=== PATIENT | male | born 1975 | race Caucasian/White ===

== ENCOUNTER 2017-11-17 07:47 | Emergency (ER) | payer BC, SELFPAY ==
[2017-11-17 07:52] VITALS: BP 152/99; PULSE 75; RESP 20; TEMP 36.6; O2SAT 98
--- NOTE | 2017-11-17 07:59 | DI.RPTCT_ITS ---
SYMPTOMS/DIAGNOSIS: RT FLANK PAIN, ? KIDNEY STONE RENAL COLIC CT: Routine examination was performed. There are no priors for comparison. The visualized lung bases are clear. There is a 2 mm stone at the right ureteral vesicular junction causing minimal hydronephrosis. No other renal calculi are identified. There is a 1.5 cm round area of decreased attenuation in the superior pole of the left kidney. This is nonspecific. This may represent a small cyst. There is a 1.5 cm round area of decreased attenuation in the dome portion of the right lobe of the liver. This is incompletely characterized on this noncontrast examination. The remaining unenhanced visualized portions of the spleen, pancreas, gallbladder and adrenal glands are unremarkable. The urinary bladder is intact. The reproductive organs are grossly unremarkable. The aorta is of normal caliber. No aneurysmal dilatation is seen. No significant abdominal or pelvic adenopathy, ascites or pneumoperitoneum is present. The bowel shows no evidence of obstruction or inflammation. There is a normal retrocecal appendix present. The bones are intact. IMPRESSION: 1. 2 mm right UVJ calculus causing mild hydronephrosis. 2. Round hypodense lesions seen in the dome of the right lobe of the liver and the superior pole of the left kidney. These are nonspecific and may represent cysts. Nonemergent follow up is suggested for further characterization. These findings were discussed with Dr. Samuels of the emergency department on the date of the examination.
--- NOTE | 2017-11-17 08:00 | ED.GENADUL ---
Disposition Clinical Impression: Nephrolithiasis Disposition: HOME Condition: Improving Instructions: Kidney Stones (ED) Additional Instructions: Drink plenty of fluids. Alternate Tylenol and Motrin as needed for pain. Take oxycodone for pain not relieved with Tylenol or Motrin. Follow-up with urology in the next week for reevaluation. Return immediately to the emergency department any worsening or new concerning symptoms such as fever, increased pain, persistent vomiting or any other concerns. Prescriptions: OxyCODONE [Roxicodone] 5 mg PO Q6H PRN #12 tab PRN Reason: Pain Tamsulosin [Flomax] 0.4 mg PO DAILY@0830 5 Days capcr Referrals: Vincenzo Marroquin MD [ [facility] STAFF PHYSICIAN] - Medical Decision Making - Lab Data Laboratory Tests 11/17/17 11/17/17 11/17/17 07:45 08:00 08:00 WBC 6.90 RBC 4.97 Hgb 14.8 Hct 42.9 MCV 86.3 MCH 29.8 MCHC 34.5 RDW 12.5 Plt Count 222 MPV 9.1 Immature Gran % 1.0 Neutrophils % 57.1 Lymphocytes % 28.4 Monocytes % 9.9 Eosinophils % 3.0 Basophils % 0.6 Absolute Neutrophils 3.94 Absolute Lymphocytes 1.96 Absolute Monocytes 0.68 Absolute Eosinophils 0.21 Absolute Basophils 0.04 Sodium 139 Potassium 3.9 Chloride 102 Carbon Dioxide 26.0 Anion Gap 11.0 BUN 13 Creatinine 1.13 Estimated GFR/1.73 m2 >= 60.00 Glucose 214 H Calcium 8.8 Urine Color Yellow Urine Clarity Cloudy Urine pH 5.5 Ur Specific [place] >= 1.030 H Urine Protein 30 H Urine Ketones Trace H Urine Blood Moderate H Urine Nitrite Negative Urine Bilirubin Negative Urine Urobilinogen 0.2 Ur Leukocyte Esterase Negative Urine RBC 5-10 H Urine WBC 0-2 Ur Epithelial Cells Negative Urine Crystals Many amorphous Urine Bacteria Few Urine Casts Negative Urine Mucus Negative Urine Other Negative Ur Culture Indicated? No Urine Glucose Negative - Radiology Data Radiology results: report reviewed, image reviewed CT renal colic: 1. 2mm UVJ causing mild hydronephrosis. 2. Round hypodense lesions dome of right lobe of liver and superior pole of left kidney which could be consistent with a cyst per - Medical Decision Making 42-year-old male with no past medical history who presents with right flank pain with radiation to right lower quadrant, nausea and urinary urgency for the past hour. Appears nontoxic and in no acute distress. Differential diagnosis includes nephrolithiasis, cholelithiasis, appendicitis, urethritis, UTI. We will place an IV, give bolus IV fluids, Toradol, labs, urinalysis and CT renal colic. Labs and imaging reviewed. CBC unremarkable. BMP notes a glucose of 214 but otherwise unremarkable. UA notes 5-10 RBCs and 0-2 WBCs but negative leukocyte esterase. CT notes a 2 mm right UVJ calculus. Pt states he feels much better and feels good to go home. Patient was informed of results. Patient was instructed to follow-up with his primary care doctor for reevaluation. He was instructed to discuss with his PCP regarding his elevated glucose and possible liver and kidney cyst noted on CT. Patient was placed on care management list to arrange for a follow-up appointment with Dr. Marroquin. Patient was instructed to return here if worse. Patient given strainer for home. Patient complained of some return of pain and was given oxycodone prior to discharge. He was able to ambulate out of the ED in no acute distress. History of Present Illness - General Chief complaint: FlankPain Stated complaint: KIDNEY PAIN Time Seen by Provider: 11/17/17 07:51 Source: patient Mode of arrival: ambulatory Limitations: no limitations - History of Present Illness Initial comments: Patient is a 42-year-old male who presents to the ER with complaint of right flank pain, nausea and urinary urgency for the past hour. Patient describes his pain as constant, sharp, with radiation to the right lower quadrant, and currently 6/10. Patient has not taken anything for pain. Patient denies known fever, dysuria, hematuria, frequency, penile discharge, vomiting, or history of kidney stones. Denies injury. - Related Data Escitalopram [Lexapro] 1 tab PO DAILY #90 tab 04/06/17 OxyCODONE [Roxicodone] 5 mg PO Q6H PRN #12 tab 11/17/17 Tamsulosin [Flomax] 0.4 mg PO DAILY@0830 5 Days capcr 11/17/17 Allergies Allergy/AdvReac Type Severity Reaction Status Date / Time No Known Allergies Allergy Unverified 11/17/17 07:55 Review of Systems Constitutional: denies: chills, fever Eyes: denies: eye pain ENT: denies: ear pain, dental pain Respiratory: denies: cough, shortness of breath Cardiovascular: denies: chest pain, dyspnea on exertion Gastrointestinal: abdominal pain, nausea. denies: vomiting, diarrhea Genitourinary: urgency. denies: dysuria, frequency, hematuria, discharge Musculoskeletal: back pain Skin: denies: rash, lesions Neurological: denies: headache, weakness, numbness Past Medical History - Past Medical History Medical history: no medical history Surgical history: no surgical history - Social History Smoking status: never smoker Alcohol use: occasionally Drug use: none General Exam - General Limitations: no limitations General appearance: alert, in no apparent distress - Eye Eye exam: Present: EOMI - Respiratory Respiratory exam: Present: normal lung sounds bilaterally. Absent: respiratory distress, wheezes, rales, rhonchi, stridor - Cardiovascular Cardiovascular Exam: Present: regular rate, normal rhythm. Absent: bradycardia, tachycardia - GI/Abdominal GI/Abdominal exam: Present: soft, tenderness (Mild to moderate right lower quadrant), normal bowel sounds. Absent: distended, guarding, rebound, rigid - exam: Present: normal inspection External exam: Absent: erythema, swelling, lesions - Extremities Exam Extremities exam: Present: full ROM - Back Exam Back exam: Present: normal inspection, CVA tenderness (R). Absent: CVA tenderness (L) - Neurological Exam Neurological exam: Present: alert, oriented X3 - Psychiatric Psychiatric exam: Present: normal affect - Skin Skin exam: Present: warm, dry, intact Course Vital Signs - 24 hr 11/17/17 07:52 Temperature 97.9 F Pulse 75 Respiratory 20 Rate Blood Pressure 152/99 Pulse Oximetry 98
[2017-11-17] MEDS: Ketorolac 30 MG/ML VIAL IVP (08:09)
[2017-11-17] MEDS: Normal Saline 1,000 ML 1000 ML IV (08:09)
[2017-11-17 08:15] LABS: Bilirubin Negative (Negative); Blood Moderate (Negative); Clarity Cloudy; Glucose Negative (Negative); Ketones Trace mg/dL (Negative); Leukocyte Esterase Negative (Negative); Nitrite Negative (Negative); Specific Gravity >= 1.030 (1.005-1.025); Urobilinogen 0.2 EU/dL (Up TO 0.2); pH 5.5 (5-8)
[2017-11-17 08:23] LABS: Abs Immature Grans 0.07 k/cumm (0.0-0.09); Absolute Basophil Count 0.04 k/cumm (0.0-0.2); Absolute Eosinophil Count 0.21 k/cumm (0.0-0.7); Absolute Lymphocyte Count 1.96 k/cumm (1.2-3.4); Absolute Monocyte Count 0.68 k/cumm (0.11-0.7); Absolute Neutrophil Count 3.94 k/cumm (1.2-6.7); Basophils % 0.6; HCT 42.9 % (40.0-50.0); HGB 14.8 g/dL (13.5-17.5); Lymphocytes % 28.4; Mean Corp. HGB Concentration 34.5 g/dL (32.0-36.0); Mean Corpuscular Hemoglobin 29.8 pg (27.0-33.0); Mean Corpuscular Volume 86.3 fL (80-95); Mean Platelet Volume 9.1 fL (8.0-11.0); Monocytes % 9.9; Neutrophils % 57.1; Platelet Count 222 x1000/uL (130-400); RBC 4.97 m/cumm (4.50-6.00); RBC Distribution Width 12.5 % (11.8-14.1)
[2017-11-17 08:31] LABS: BUN 13 mg/dL (7-18); CREATININE 1.13 mg/dL (0.70-1.30); Calcium 8.8 mg/dL (8.5-10.1); Chloride 102 mmol/L (98-107); Glucose 214 mg/dL (70-100); Potassium 3.9 mmol/L (3.5-5.1); Sodium 139 mmol/L (136-145)
[2017-11-17 08:33] LABS: WBC 0-2 HPF (0-5)
[2017-11-17 08:34] LABS: Bacteria Few HPF (Negative); C & S Indicated? No; Casts Negative LPF (Negative); Crystals Many Amorphous HPF (Negative); Epithelial Cells Negative HPF (Negative); Mucus Negative (Negative); Other Cells Negative (Negative)
[2017-11-17] MEDS: oxyCODONE 5 MG TAB PO (09:36)
[2017-11-17 09:42] VITALS: BP 130/77; PULSE 70; RESP 16; TEMP 36.7; O2SAT 98
--- NOTE | 2017-11-18 08:43 | PDOC.ERCMPRO ---
Care Management Progress Note 11/18-Dr. Samuels requested assistance with a urology appt in one week for kidney stone. Referral faxed to urology this am.
== END 2017-11-17 09:44 | disposition home or self-care (01) ==
LOC: ER 12-27 14:45
PROVIDERS: Emergency Provider Physician Assistant; PCP Family Medicine
DX: N13.2 Hydronephrosis with renal and ureteral calculous obstruction (principal)
CPT/HCPCS: 36415; 80048; 96361; 96374; 99284; 74176; 81003; 81015; 85025; J1885

== ENCOUNTER → 2017-11-23 10:13 | Outpatient (CLI) | payer BC, SELFPAY ==
[2017-11-23 11:07] LABS: Hemoglobin A1C 7.1 % (4.5-6.2)
[2017-11-23 11:54] LABS: ALT 66 U/L (12-78); AST 43 U/L (15-37); Albumin 4.2 g/dL (3.4-5.0); Alkaline Phosphatase 76 U/L (46-116); Anion Gap 10.8 mmol/L (3-11); BUN 14 mg/dL (7-18); Bilirubin, Total 1.1 mg/dL (0.2-1.0); CO2 27.2 mmol/L (21.0-32.0); CREATININE 0.95 mg/dL (0.70-1.30); Chloride 103 mmol/L (98-107); Cholesterol 251 mg/dL (50-200); Glucose 155 mg/dL (70-100); HDL Cholesterol 35 mg/dL (40-60); LDL CHOLESTEROL 151 mg/dL (<100); Potassium 4.3 mmol/L (3.5-5.1); Sodium 141 mmol/L (136-145); Total Protein 7.4 g/dL (6.4-8.2); Triglyceride 392 mg/dL (30-150)
[2017-11-24 12:58] LABS: HIV-1/2 Ag & Ab Screen Negative (NEGAT)
== END ==
PROVIDERS: PCP Family Medicine; Visit Provider Family Medicine
DX: R73.9 Hyperglycemia, unspecified (principal); Z56.9 Unspecified problems related to employment
CPT/HCPCS: 36415; 80053; 80061; 83721; 87389; 83036

== ENCOUNTER → 2017-11-24 13:00 | Outpatient (REF) | payer BC, SELFPAY ==
[2017-12-18 14:19] LABS: Source: Passed Stone
== END ==
LOC: LBN 13:00
PROVIDERS: PCP Family Medicine; Visit Provider Nurse Practitioner Gerontology
DX: N20.0 Calculus of kidney (principal)
CPT/HCPCS: 82360

== ENCOUNTER 2017-12-29 15:05 | Outpatient (CLI) | payer BC, SELFPAY ==
--- NOTE | 2017-12-28 13:40 | DI.US_ITS ---
SYMPTOMS/DIAGNOSIS: F/U KIDNEY STONE, N20.0, AND HYDRONEPHROSIS RENAL ULTRASOUND: Comparison is made with renal colic CT dated November,. The kidneys are normal in size and echogenicity and show normal parenchymal thickness. The right kidney measures 12.5 cm in length. The left kidney measures 11.1 cm in length. There is no evidence of hydronephrosis. No stones are identified. There is a small simple cyst at the upper pole of the left kidney. The bladder prevoid volume measured 67 cc. There is a 53 cc postvoid residual. Both ureteral jets were visualized. IMPRESSION: No evidence of hydronephrosis. Elevated postvoid residual.
== END 2017-12-29 15:25 ==
PROVIDERS: PCP Family Medicine; Visit Provider Nurse Practitioner Gerontology
DX: N20.0 Calculus of kidney (principal); R39.198 Other difficulties with micturition
CPT/HCPCS: 76770

== ENCOUNTER 2018-04-05 02:27 | Outpatient (CLI) | payer BC, SELFPAY ==
[2018-04-05 09:06] LABS: Hemoglobin A1C 7.3 % (4.5-6.2)
[2018-04-05 09:07] LABS: COMMENT (LAB VIEW ONLY) 201.19 mg/dL; Microalb ug/mg Crea 8.8 ug/mg Cr
[2018-04-05 09:16] LABS: ALT 69 U/L (12-78); AST 39 U/L (15-37); Alkaline Phosphatase 67 U/L (46-116); Anion Gap 8.9 mmol/L (3-11); BUN 12 mg/dL (7-18); CO2 28.1 mmol/L (21.0-32.0); CREATININE 0.92 mg/dL (0.70-1.30); Calcium 8.8 mg/dL (8.5-10.1); Chloride 102 mmol/L (98-107); Cholesterol 239 mg/dL (50-200); Glucose 202 mg/dL (70-100); HDL Cholesterol 30 mg/dL (40-60); LDL CHOLESTEROL 150 mg/dL (<100); Potassium 4.3 mmol/L (3.5-5.1); Sodium 139 mmol/L (136-145); Total Protein 7.2 g/dL (6.4-8.2); Triglyceride 324 mg/dL (30-150)
== END 2018-04-05 02:47 ==
PROVIDERS: PCP Family Medicine; Visit Provider Family Medicine
DX: E11.9 Type 2 diabetes mellitus without complications (principal)
CPT/HCPCS: 36415; 80053; 80061; 83721; 82043; 82570; 83036

== ENCOUNTER 2018-06-18 17:03 | Emergency (ER) | payer BC, SELFPAY ==
[2018-06-18 17:07] VITALS: BP 136/87; PULSE 74; RESP 16; TEMP 36.7; O2SAT 98
--- NOTE | 2018-06-18 17:22 | W.ED.GENAD ---
Discharge Plan Disposition Patient Disposition: HOME Condition: Stable Discharge Details Chief Complaint: RespSymp Clinical Impression: URI (upper respiratory infection) Primary Care Provider: Zee White ED Provider: Michael Singh Home Meds and New Rx's Prescriptions: Continued metformin 500 mg tablet 500 mg PO DAILY Qty: 90 RF: 1 FreeStyle Haja 10 Day Sensor kit .ROUTE .MEDSUPPLY Qty: 1 RF: 0 escitalopram oxalate [Lexapro] 20 mg tablet 20 mg PO DAILY Qty: 90 RF: 4 Discharge Instructions Instructions: Upper Respiratory Infection (ED) Additional Instructions: Please continue to use [id number] medications such as Flonase, Tylenol cold and flu severe, and simple saline nasal rinses. You may take ibuprofen as needed for sinus pressure and return immediately to the emergency department for any new or significant worsening of symptoms, fever or chills after 1 week of symptoms, or any further concerns. Otherwise follow-up with your primary care provider as needed for reassessment. Referrals: Zee White MD [Primary Care Provider] - (As needed for reassessment) Discharge Data Discharge Date/Time-TO BE ENTERED AT DEPARTURE: 06/18/18 17:30 Medical Decision Making Patient presenting to the emergency department for chief complaint of upper respiratory tract infectious type symptoms. He states that approximately 4 days ago he began having some sinus pressure nasal congestion which now is caused some postnasal drainage, mild sore throat, and headache along with ear pressure. Patient denies any fever chills, chest pain, difficulty breathing. Review of vital signs shows within normal limits vital signs without tachycardia, hypotension, febrile or hypoxia. Physical exam reveals nasal congestion without significant sinus tenderness, no lymphadenopathy, otherwise normal HEENT exam. Patient symptoms are consistent with viral upper respiratory tract infection. Given local prevalence of influenza influenza testing was offered to patient but given duration of symptoms I do not feel that he would qualify for Tamiflu and has no significant risk factors and stable vital signs. After discussion of this with patient patient denied influenza testing. Viral illness was thoroughly discussed with patient along with return precautions. Patient recommended to take [id number] Flonase, Tylenol cold and flu severe, and perform saline nasal rinses. After discussion of diagnosis and plan of care patient has no further needs, questions, or concerns and states clear understanding to return to the emergency department for any worsening symptoms. HPI General Mode of arrival: ambulatory. Date/Time Provider Initiated Documentation: 06/18/18 17:10. Limitations to Documentation: no limitations. Information obtained by: RN notes reviewed. History of Present Illness 42 year old M presents to the emergency department with the chief complaint of sinus pressure, cold symptoms, described as severe, with intensity rated at 10. and is localized to the face. Patient started experiencing this day(s) (4) and it has been constant. Patient did receive the following treatments prior to arrival, other (Cherie-Osakis cold) Related Data Home Medications Medication Instructions Recorded Confirmed metformin 500 mg tablet 500 mg PO DAILY #90 tab 04/06/18 06/18/18 escitalopram 20 mg tablet 20 mg PO DAILY #90 tab 04/28/18 06/18/18 flash glucose sensor kit #1 each 05/06/18 06/18/18 Previous Rx's Medication Instructions Recorded metformin 500 mg tablet 500 mg PO DAILY #90 tab 04/06/18 escitalopram 20 mg tablet 20 mg PO DAILY #90 tab 04/28/18 flash glucose sensor kit #1 each 05/06/18 Allergies Allergy/AdvReac Type Severity Reaction Status Date / Time No Known Allergies Allergy Unverified 06/18/18 17:12 General Stated Complaint: RespSymp DANNY: 4 Review of Systems Constitutional Denies body ache(s), Denies chills, Denies fever(s), Reports headache(s) and Reports malaise Eyes Denies eye discharge ENT Reports as per HPI, Denies ear discharge, Reports otalgia, Reports headache(s), Reports nasal congestion, Reports nasal discharge, Denies neck pain, Reports sinus pain, Reports sinus pressure, Reports sore throat and Denies throat swelling Cardiovascular Denies chest pain and Denies dyspnea Respiratory Reports cough and Denies dyspnea Musculoskeletal Denies joint swelling and Denies neck pain Integumentary/Breasts Denies rash Neurologic Reports headache(s) Allergic/Immunologic Denies throat swelling PFSH Surgical History Vasectomy Social History household members: none lives independently: Yes highest education level completed: high school graduate 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 Smoking and Tabacco status: Never alcohol intake: current alcohol intake frequency: 0-2 drinks per day Alcohol type: beer Exam Const General: cooperative, comfortable, no acute distress and not ill appearing Orientation: alert and awake [facility] Head: normal to inspection, normocephalic and atraumatic Ears: hearing grossly normal bilaterally and TM's normal bilaterally General nose exam: external nose normal Face and sinus: normal facial exam, sinuses nontender and no erythema Mouth: oral mucosae normal, no drooling, no muffled voice and no trismus Throat: posterior oropharynx normal, tonsils normal and uvula midline Neck Neck: normal visual inspection, full ROM, no lymphadenopathy, no meningeal signs, trachea midline and supple Resp Effort & Inspection: normal respiratory effort and able to speak in complete sentences Auscultation: clear to auscultation bilaterally Cardio Rate: regular rate Rhythm: regular rhythm Heart Sounds: S1 normal, S2 normal, normal S1 and S2, no click, no gallops, no murmurs and no rubs Skin General skin exam: no rashes or lesions noted and dry skin (warm) Neuro General: alert and awake Course Vital Signs Temperature 36.7 C 06/18/18 17:07 Pulse 74 06/18/18 17:07 Respiratory Rate 16 06/18/18 17:07 Blood Pressure 136/87 06/18/18 17:07 Pulse Oximetry 98 06/18/18 17:07 Temperature 36.7 C 06/18/18 17:07 Temperature Source Skin 06/18/18 17:07 Pulse 74 06/18/18 17:07 Respiratory Rate 16 06/18/18 17:07 Respiratory Effort Non-Labored 06/18/18 17:10 Blood Pressure 136/87 06/18/18 17:07 Pulse Oximetry 98 06/18/18 17:07 Pain Level 10 06/18/18 17:07
== END 2018-06-18 17:30 | disposition home or self-care (01) ==
PROVIDERS: Emergency Provider Nurse Practitioner Family; PCP Family Medicine
DX: R09.81 Nasal congestion (principal); J02.8 Acute pharyngitis due to other specified organisms; R51 Headache; J06.9 Acute upper respiratory infection, unspecified; E11.9 Type 2 diabetes mellitus without complications; Z79.84 Long term (current) use of oral hypoglycemic drugs
CPT/HCPCS: 99282

== ENCOUNTER 2018-10-25 02:04 | Outpatient (CLI) | payer BC, SELFPAY ==
[2018-10-25 08:30] LABS: Hemoglobin A1C 6.5 % (4.5-6.2)
[2018-10-25 08:33] LABS: ALT 50 U/L (12-78); AST 35 U/L (15-37); Alkaline Phosphatase 76 U/L (46-116); Anion Gap 10.6 mmol/L (3-11); BUN 16 mg/dL (7-18); Bilirubin, Total 1.2 mg/dL (0.2-1.0); CO2 26.4 mmol/L (21.0-32.0); CREATININE 0.99 mg/dL (0.70-1.30); Calcium 8.8 mg/dL (8.5-10.1); Calculated LDL 114 mg/dL; Chloride 103 mmol/L (98-107); Cholesterol 216 mg/dL (50-200); Glucose 147 mg/dL (70-100); HDL Cholesterol 32 mg/dL (40-60); Potassium 4.4 mmol/L (3.5-5.1); Sodium 140 mmol/L (136-145); Total Protein 7.2 g/dL (6.4-8.2); Triglyceride 350 mg/dL (30-150)
== END 2018-10-25 02:24 ==
PROVIDERS: PCP Family Medicine; Visit Provider Family Medicine
DX: E11.9 Type 2 diabetes mellitus without complications (principal)
CPT/HCPCS: 36415; 80053; 80061; 83721; 83036

== ENCOUNTER 2019-01-29 09:55 | Outpatient (CLI) | payer BC, SELFPAY ==
[2019-01-29 11:43] LABS: ALT 62 U/L (16-63); AST 45 U/L (15-37); Albumin 4.1 g/dL (3.4-5.0); Alkaline Phosphatase 69 U/L (46-116); Anion Gap 10.6 mmol/L (3-11); BUN 13 mg/dL (7-18); Bilirubin, Total 1.2 mg/dL (0.2-1.0); CO2 27.4 mmol/L (21.0-32.0); Calcium 8.8 mg/dL (8.5-10.1); Calculated LDL 118 mg/dL; Chloride 103 mmol/L (98-107); Cholesterol 222 mg/dL (50-200); Glucose 180 mg/dL (70-100); HDL Cholesterol 32 mg/dL (40-60); Potassium 4.2 mmol/L (3.5-5.1); Sodium 141 mmol/L (136-145); Total Protein 7.4 g/dL (6.4-8.2); Triglyceride 362 mg/dL (30-150)
[2019-01-30 06:30] LABS: Hemoglobin A1C 6.9 % (4.5-6.2)
== END 2019-01-29 10:15 ==
PROVIDERS: PCP Family Medicine; Visit Provider Family Medicine
DX: E11.9 Type 2 diabetes mellitus without complications (principal); E78.5 Hyperlipidemia, unspecified
CPT/HCPCS: 36415; 80053; 80061; 83036

== ENCOUNTER 2019-05-16 01:24 | Outpatient (CLI) | payer BC, SELFPAY ==
[2019-05-16 11:54] LABS: Hemoglobin A1C 7.6 % (3.8-5.6)
[2019-05-16 12:23] LABS: Calculated LDL 91 mg/dL (<100); Cholesterol 201 mg/dL (<200); HDL Cholesterol 33 mg/dL (40-60); Triglyceride 389 mg/dL (<150)
== END 2019-05-16 01:44 ==
PROVIDERS: PCP Family Medicine; Visit Provider Family Medicine
DX: E78.00 Pure hypercholesterolemia, unspecified (principal); E11.9 Type 2 diabetes mellitus without complications
CPT/HCPCS: 36415; 80061; 83036

== ENCOUNTER 2019-12-05 07:33 | Outpatient (CLI) | payer BC, SELFPAY ==
[2019-12-06 14:44] LABS: COVID-19 RT-PCR Result NEGATIVE (Negative)
== END 2019-12-05 07:53 ==
PROVIDERS: PCP Family Medicine; Visit Provider Family Medicine
DX: Z11.59 Encounter for screening for other viral diseases (principal)
CPT/HCPCS: U0003

== ENCOUNTER 2020-04-17 03:19 | Outpatient (CLI) | payer BC, SELFPAY ==
[2020-04-17 20:50] LABS: COVID-19 RT-PCR UVMMC Result Negative (Negative)
== END 2020-04-17 03:39 ==
PROVIDERS: PCP Family Medicine; Visit Provider Family Medicine
DX: Z20.828 Contact with and (suspected) exposure to other viral communicable diseases (principal)
CPT/HCPCS: U0003

== ENCOUNTER 2020-07-17 11:05 | Outpatient (CLI) | payer BC, SELFPAY ==
[2020-07-17 13:11] LABS: Hemoglobin A1C 6.9 % (<5.7)
== END 2020-07-17 11:06 | disposition home or self-care (01) ==
LOC: LOS 07-18 11:07
PROVIDERS: PCP Family Medicine; Visit Provider Family Medicine
DX: E11.9 Type 2 diabetes mellitus without complications (principal)
CPT/HCPCS: 36415; 83036

== ENCOUNTER 2020-10-16 08:32 | Outpatient (CLI) | payer BC, SELFPAY ==
[2020-10-16 12:47] LABS: ALT 69 U/L (16-63); AST 41 U/L (15-37); Albumin 4.2 g/dL (3.4-5.0); Alkaline Phosphatase 72 U/L (46-116); Anion Gap 10.4 mmol/L (3-11); BUN 15 mg/dL (7-18); Bilirubin, Total 1.1 mg/dL (0.2-1.0); CO2 26.6 mmol/L (21.0-32.0); CREATININE 0.9 mg/dL (0.70-1.30); Calculated LDL 98 mg/dL (<100); Chloride 103 mmol/L (98-107); Cholesterol 196 mg/dL (<200); Glucose 216 mg/dL (74-106); HDL Cholesterol 33 mg/dL (40-60); Potassium 4.5 mmol/L (3.5-5.1); Sodium 140 mmol/L (136-145); Total Protein 7.5 g/dL (6.4-8.2); Triglyceride 326 mg/dL (<150)
[2020-10-16 13:22] LABS: COMMENT (LAB VIEW ONLY) 200.78 mg/dL
== END 2020-10-16 08:33 | disposition home or self-care (01) ==
PROVIDERS: PCP Family Medicine; Visit Provider Family Medicine
DX: E11.9 Type 2 diabetes mellitus without complications (principal)
CPT/HCPCS: 36415; 80053; 80061; 82043; 82570

== ENCOUNTER 2021-02-14 01:17 | Outpatient (CLI) | payer BC, SELFPAY ==
[2021-02-14 14:05] LABS: Hemoglobin A1C 8.1 % (<5.7)
== END 2021-02-14 01:18 | disposition home or self-care (01) ==
LOC: LOS 01:18
PROVIDERS: PCP Family Medicine; Visit Provider Family Medicine
DX: E11.9 Type 2 diabetes mellitus without complications (principal)
CPT/HCPCS: 36415; 83036

== ENCOUNTER 2021-09-17 10:52 | Outpatient (CLI) | payer BC, SELFPAY | END 2021-09-17 10:53 | disposition home or self-care (01) | PROVIDERS: PCP Family Medicine; Visit Provider Family Medicine ==

== ENCOUNTER 2021-09-17 19:32 | Outpatient (REF) | payer BC, SELFPAY ==
[2021-09-18 13:15] LABS: COVID-19 RT-PCR UVMMC Result Negative (Negative)
== END 2021-09-17 19:33 | disposition home or self-care (01) ==
LOC: LBN 19:32
PROVIDERS: PCP Family Medicine; Visit Provider Family Medicine
DX: Z20.822 Contact with and (suspected) exposure to COVID-19 (principal); R09.89 Other specified symptoms and signs involving the circulatory and respiratory systems
CPT/HCPCS: U0003

== ENCOUNTER 2022-01-01 04:38 | Outpatient (CLI) | payer BC, SELFPAY ==
[2022-01-01 09:44] LABS: Hemoglobin A1C 6.9 % (<5.7)
[2022-01-01 10:22] LABS: ALT 40 U/L (16-63); AST 23 U/L (15-37); Albumin 4.2 g/dL (3.4-5.0); Alkaline Phosphatase 63 U/L (46-116); Anion Gap 9.6 mmol/L (3-11); BUN 15 mg/dL (7-18); Bilirubin, Total 1.2 mg/dL (0.2-1.0); CO2 26.4 mmol/L (21.0-32.0); CREATININE 0.9 mg/dL (0.70-1.30); Calcium 8.9 mg/dL (8.5-10.1); Calculated LDL 109 mg/dL (<100); Chloride 103 mmol/L (98-107); Cholesterol 193 mg/dL (<200); Estimated GFR 106.67 (mL/min/1.73m2); Glucose 149 mg/dL (74-106); HDL Cholesterol 39 mg/dL (40-60); Potassium 4.1 mmol/L (3.5-5.1); Sodium 139 mmol/L (136-145); Total Protein 7.8 g/dL (6.4-8.2); Triglyceride 225 mg/dL (<150)
[2022-01-01 18:23] LABS: Albumin, Ur < 0.6 mg/dL (See Note); Creatinine, Ur 98.3 mg/dL (See Note)
[2022-01-02 10:12] LABS: Hepatitis C Ab w Rflx HCV PCR Negative (Negative)
[2022-01-02 11:27] LABS: Hepatitis B Surface Ag Negative (Negative)
== END 2022-01-01 04:39 | disposition home or self-care (01) ==
LOC: LBO 04:38
PROVIDERS: PCP Nurse Practitioner Family; Visit Provider Family Medicine
DX: E11.9 Type 2 diabetes mellitus without complications (principal); R74.8 Abnormal levels of other serum enzymes; I10 Essential (primary) hypertension
CPT/HCPCS: 80053; 80061; 86803; 87340; 82043; 82570; 83036

== ENCOUNTER 2022-07-05 15:18 | Emergency (ER) | payer BC, SELFPAY ==
[2022-07-05] VITALS (12 sets, daily range): BP systolic 117–131; BP diastolic 71–78; PULSE 60–70; RESP 16; TEMP 36.2; O2SAT 96–98
--- NOTE | 2022-07-05 15:45 | DI.CT_ITS ---
Exam(s) CT ABDOMEN PELVIS W EXAM: CT ABDOMEN PELVIS W CLINICAL HISTORY: right lower abdominal pain. TECHNIQUE: Imaging Protocol: Axial computed tomography images with coronal and sagittal reformatted images were created and reviewed CONTRAST MATERIAL: Intravenous: Omnipaque-350 100cc Oral: None COMPARISON: CT RENAL COLIC WO CONTRAST from 11/17/2017 FINDINGS: VISUALIZED LUNG BASES: No nodules nor pleural effusions evident. ABDOMEN: There is no ascites. LIVER: There is benign cyst in the posterior aspect of the right hepatic lobe which is unchanged from 2018. This measures 1.5 x 1.4 cm. No dilated intrahepatic ducts. GALLBLADDER/BILIARY: No obvious gallbladder pathology. CBD is not dilated. PANCREAS: No evidence of pancreatic mass nor dilatation of the pancreatic duct. SPLEEN: Spleen is not enlarged. No obvious intrasplenic lesions. Splenic and portal veins are paten t. ADRENALS: There are no significant adrenal masses. KIDNEYS:There is a benign cyst in the superior pole of the left kidney measuring 2 x 2 cm. A smaller cyst in the anterior cortex of the left kidney is also noted measuring 1 x 1 cm. No other focal fin dings in the left kidney. There is a partially exophytic cyst in the posterior cortex of the right k idney measures 1.5 x 1.0 cm. No solid renal masses. No calculi nor hydronephrosis.. ABDOMINAL AORTA: Abdominal aorta is not enlarged. LYMPH NODES:There is no retroperitoneal nor paraaortic adenopathy. ABDOMINAL WALL: No evidence of significant anterior abdominal wall nor inguinal hernia. GI: There is no evidence of bowel obstruction, free air, nor abscess. PELVIS: GI: No evidence of appendicitis.No evidence of sigmoid diverticulitis. LYMPH NODES: There is no intrapelvic nor inguinal adenopathy. REPRODUCTIVE: Prostate size upper normal. Seminal vesicles unremarkable. URINARY BLADDER: No calculi nor obvious masses evident OSSEOUS: No fractures and no significant osseous lesions. IMPRESSION: 1. No evidence of acute appendicitis nor acute diverticulitis. No evidence of acute inflammatory pro cess in either iliac fossa. 2. Stable small simple benign cyst in the liver as well as small benign kidney cysts. No renal calcu li. No hydronephrosis. RADIATION DOSE DELIVERED: 1,277.44mGy.cm Total DLP DATA REPOSITORY: All CT scans at this facility are submitted to the National Radiology Data Registry (NRDR) Dose Index Registry (DIR) with the [employer] [place] [employer] (A[employer]). RADIATION OPTIMIZATION: All CT scans at this facility use at least one of these dose optimization te chniques: automated exposure control; mA and/or kV adjustment per patient size (includes targeted exa ms where dose is matched to clinical indication); or iterative reconstruction.
--- NOTE | 2022-07-05 15:52 | ED.GENADUL_ITS ---
Discharge Plan Disposition Patient Disposition: Home Condition: Stable Discharge Details Clinical Impression: RLQ abdominal pain Primary Care Provider: Alejandro Nice ED Provider: David Jimenez Home Meds and New Rx's Prescriptions: Continued Jardiance 10 mg tablet 10 mg PO DAILY Qty: 90 3RF pravastatin 20 mg tablet 20 mg PO DAILY Qty: 90 4RF aspirin 81 mg tablet,delayed release (DR/EC) See Rx Instructions .ROUTE .COMPLEX Qty: 90 3RF Dose Instruction: TAKE ONE TABLET BY MOUTH EVERY DAY Rx Instructions: TAKE ONE TABLET BY MOUTH EVERY DAY metformin 500 mg tablet extended release 24 hr 1,000 mg PO DAILY Qty: 180 3RF Rx Instructions: take 2 tablets once a day escitalopram oxalate [Lexapro] 20 mg tablet 20 mg PO DAILY Qty: 90 4RF Discharge Instructions Instructions: Abdominal Pain (ED) Additional Instructions: your blood work and cat scan did not show concerning findings if pain continues follow up with your primary care provider if you feel more ill, have severe worsening pain or persistent vomiting return to the emergency department Medical Decision Making 46 yo male with hx of hld, dm, who denies prior abdominal surgeries comes in with discomfort in the rlq for 2 days. Denies fevers, chills, n/v, testicle pain or swelling, no dysuria. HE states it feels like a dull ache as if he pulled or strained a muscle. HE arrives stable speaking clearly in no distress. HE has no abdominal distention, is tender with palpation to the rlq, no tenderness elsewhere. Given location of pain concern for appendicitis, will obtain cbc, cmp, lipase and ct abd/pelvis imaging and labs unremarkable, pt stable and has minimal rlq tenderness, appendix normal on CT. Discussed with pt and he is comfortable with d/c and will f/u with his pcp, return precautions given Differential Diagnosis Differential Diagnosis: appendicitis, colitis, pancreatitis Imaging Data Radiologic Study: Attestation: I personally reviewed and interpreted this imaging study as follows: Imaging: CT Scan Radiologist's impression: no acute findings Lab Data Lab results reviewed: Yes I reviewed the patient's lab results. HPI General Mode of arrival: ambulatory . Date/Time Provider Initiated Documentation: 07/05/22 15:28 . Limitations to Documentation: no limitations . Information obtained by: patient . History of Present Illness 46 year old M presents to the emergency department with the chief complaint of right lower abdominal pain, described as moderate, Quality is described as aching, Patient started experiencing this day(s) (2) and it has been constant. No relieving factors improve symptom(s), No exacerbating factors reported . Patient notes no other symptoms.; denies fever/chills and nausea/vomiting. Patient did receive the following treatments prior to arrival, none Related Data Home Medications Medication Instructions Recorded Confirmed pravastatin 20 mg tablet 20 mg PO DAILY #90 tabs 07/30/21 04/01/22 aspirin 81 mg tablet,delayed See Rx Instructions .Route 08/11/21 04/01/22 release .COMPLEX #90 tabs metformin 500 mg tablet,extended 1,000 mg PO DAILY #180 tabs 10/15/21 04/01/22 release 24 hr escitalopram oxalate 20 mg tablet 20 mg PO DAILY #90 tabs 11/12/21 04/01/22 (Lexapro) empagliflozin 10 mg tablet 10 mg PO DAILY #90 tabs 01/01/22 04/01/22 (Jardiance) Previous Rx's Medication Instructions Recorded pravastatin 20 mg tablet 20 mg PO DAILY #90 tabs 07/30/21 aspirin 81 mg tablet,delayed See Rx Instructions .Route 08/11/21 release .COMPLEX #90 tabs metformin 500 mg tablet,extended 1,000 mg PO DAILY #180 tabs 10/15/21 release 24 hr escitalopram oxalate 20 mg tablet 20 mg PO DAILY #90 tabs 11/12/21 (Lexapro) empagliflozin 10 mg tablet 10 mg PO DAILY #90 tabs 01/01/22 (Jardiance) Allergies Allergy/AdvReac Type Severity Reaction Status Date / Time No Known Allergies Allergy Verified 04/01/22 15:58 General Stated Complaint: Abd Prob DANNY: 3 Review of Systems All systems reviewed & are unremarkable except as noted in HPI and below Constitutional Constitutional: Denies chills, Denies fever(s) and Denies weakness Cardiovascular Cardiovascular: Denies chest pain and Denies dyspnea Respiratory Respiratory: Denies cough and Denies dyspnea Gastrointestinal Gastrointestinal: Denies nausea and Denies vomiting Genitourinary Genitourinary: Denies dysuria Musculoskeletal Musculoskeletal: Denies joint swelling Integumentary/Breasts Skin/Breast: Denies rash Neurologic Neurologic: Denies weakness PFSH All Active Problems (Updated 07/05/22 @ 17:21 by David Jimenez MD) RLQ abdominal pain (Acute) Elevated liver enzymes (Acute) Type 2 diabetes mellitus without complication, without long-term current use of insulin (Acute 11/26/17) Liver cyst (Acute 11/23/17) Kidney cysts (Acute 11/23/17) Depression (Acute) Medical History (Updated 07/05/22 @ 17:21 by David Jimenez MD) Adverse exposure in workplace (11/23/17) Kidney stone (11/23/17) Surgical History (Updated 09/17/21 @ 10:29 by Linus Ibrahim MD) Vasectomy Social History (Updated 01/08/22 @ 13:48 by Martha Whatley) Smoking/Tobacco Use Status: Never Second Hand Exposure: No Smoking risk assessment performed?: Yes Alcohol Intake: current Alcohol Intake frequency: a few times a week Alcohol type: beer and hard liquor Drug use: Never Caregiver/Support person: No Household members: children Housing: house Communication Needs: None Do you need help understanding health information?: Never 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 Pets and animals: Yes Pets and animals: dog(s) Sexually active: Yes Do you think of yourself as: straight/heterosexual Current gender identity: male What is your relationship status?: How often do you talk on the phone with friends or family?: twice per week How often do you get together with friends or relatives?: twice per week How often do you attend sikhism or caodaism services?: decline to answer Do you belong to any clubs or organized social groups?: yes Panel score (0-1 are the most socially isolated patients): 2 What type of physical activity do you participate in: walking Duration: 60-90 minutes/day Frequency: 3-4 times per week Tana/Denominational: No preference Special tana needs: No Do you feel safe at home: Yes Do you feel safe in your relationship?: Yes Exam Const General: no acute distress Orientation: alert HENNH Head: normal to inspection Ears: external ears normal General nose exam: external nose normal Mouth: moist mucous membranes Eyes General: appearance normal, both eyes and all related structures Neck Neck: normal visual inspection Resp Effort & Inspection: normal respiratory effort and able to speak in complete sentences Cardio Rate: regular rate GI Palpation: soft and tender Skin General skin exam: no rashes or lesions noted Neuro General: patient alert and patient oriented x3 Extrem General: normal to inspection Psych Mental Status: mental status grossly normal Course Vital Signs Vital signs: Vital Signs Temperature 36.2 C L 07/05/22 15:34 Pulse 70 07/05/22 15:34 Respiratory Rate 16 07/05/22 15:34 Blood Pressure 127/78 07/05/22 15:34 Pulse Oximetry 97 07/05/22 15:34 Temperature 36.2 C L 07/05/22 15:34 Temperature Source Tympanic 07/05/22 15:34 Pulse 70 07/05/22 15:34 Respiratory Rate 16 07/05/22 15:34 Respiratory Effort Normal 07/05/22 15:39 Blood Pressure 127/78 07/05/22 15:34 Blood Pressure Position Sitting 07/05/22 15:34 Pulse Oximetry 97 07/05/22 15:34 Oxygen Delivery Method Room Air 07/05/22 15:34 Oxygen Flow Rate 0 07/05/22 15:34 Pain Level 5 07/05/22 15:34 PAWSS Have you Been Recently Intoxicated or Drunk Within the Last 30 days?: No Have you Ever Experienced Previous Episodes of Alcohol Withdrawal?: No Have you ever Experienced Withdrawal Seizures?: No Have you ever Experienced Delirium Tremens(DT)s?: No Have you ever undergone Alcohol Rehabilitation Treatment (i.e, inpt ot outpatient treatment programs)?: No Have you ever Experienced Blackouts?: No Have you ever Combined Alcohol with other Downers within the last 90 days?: No Have you ever Combined Alcohol with any other Substance of Abuse during the last 90 days?: No Positive Blood Alcohol level on Presentation? [PCS.BAL]: No Evidence of Increased Autonomic Activity (i.e. HR>120, tremor, sweating, agitation, nausea)?: No Result: 0
[2022-07-05 15:59] LABS: Abs Immature Grans 0.05 10^3/uL (0.0-0.06); Absolute Basophil Count 0.03 10^3/uL (0.0-0.2); Absolute Eosinophil Count 0.14 10^3/uL (0.0-0.7); Absolute Lymphocyte Count 2.03 10^3/uL (1.2-3.4); Absolute Monocyte Count 0.69 10^3/uL (0.1-0.8); Absolute Neutrophil Count 3.89 10^3/uL (1.2-6.7); Basophils % 0.4; HCT 44.2 % (40.0-50.0); HGB 15.5 g/dL (13.5-17.5); Immature Grans % 0.7; Lymphocytes % 29.7; MCH 31.3 pg (27.0-33.0); MCHC 35.1 % (32.0-36.0); MCV 89 fL (80-95); MPV 10.5 fL (8.0-11.0); Monocytes % 10.1; Neutrophils % 57.1; RBC 4.96 10^6/uL (4.36-5.78); RDW 11.9 % (11.8-14.1); RDW-SD 38.6 fL; WBC 6.83 10^3/uL (4.4-10.8)
[2022-07-05] MEDS: Normal Saline Flush 10 ML SYR IVP (15:59)
[2022-07-05] MEDS: Normal Saline - Diluent 50 ML VIAL IJ (16:01)
[2022-07-05] MEDS: Omnipaque 350 MG/ML 100 ML BTL IJ (16:02)
[2022-07-05] MEDS: Normal Saline 1,000 ML 1000 ML IV (16:11)
[2022-07-05 16:13] LABS: Albumin 3.8 g/dL (3.4-5.0); Alkaline Phosphatase 68 U/L (46-116); Anion Gap 7.4 mmol/L (3-11); BUN 15 mg/dL (7-18); Bilirubin, Total 0.6 mg/dL (0.2-1.0); CO2 25.6 mmol/L (21.0-32.0); CREATININE 0.9 mg/dL (0.70-1.30); Calcium 8.9 mg/dL (8.5-10.1); Chloride 102 mmol/L (98-107); Estimated GFR 106.67 (mL/min/1.73m2); Glucose 227 mg/dL (74-106); Lipase 55 U/L (16-77); Magnesium 2.1 mg/dL (1.8-2.4); Potassium 4.7 mmol/L (3.5-5.1); Sodium 135 mmol/L (136-145); Total Protein 7.5 g/dL (6.4-8.2)
[2022-07-05 16:17] LABS: Platelet Count 172 10^3/uL (130-400)
[2022-07-05 16:28] LABS: Bilirubin Negative (Negative); Blood Negative (Negative); Clarity Clear (Clear); Glucose 500 mg/dL (Negative); Ketones Trace mg/dL (Negative); Leukocyte Esterase Negative (Negative); Nitrite Negative (Negative); Specific Gravity 1.015 (1.005-1.025); Urobilinogen 0.2 mg/dL (Up to 0.2); pH 5.5 (5-8)
[2022-07-05 16:34] LABS: ALT 14 U/L (16-63); AST 34 U/L (15-37)
--- NOTE | 2022-07-05 17:01 | DI.VRAD_ITS ---
PROCEDURE INFORMATION: Exam: CT Abdomen And Pelvis With Contrast Exam date and time: 07/05/2022 4:00 PM Age: 46 years old Clinical indication: Other: Right lower abdominal pain TECHNIQUE: Imaging protocol: Computed tomography of the abdomen and pelvis with contrast. Contrast material: OMNIPAQUE 350; Contrast volume: 100 ml; Contrast route: INTRAVENOUS (IV); COMPARISON: CT RENAL COLIC WO CONTRAST 11/17/2017 8:14 AM FINDINGS: Liver: There is a 1.6 cm cyst in the posterior superior aspect of segment VII of the liver. No other cysts or masses. The liver enhances uniformly. Gallbladder and bile ducts: The gallbladder is normal. There is no common bile duct dilation. Pancreas: The pancreas is normal. Spleen: The spleen is normal. Adrenal glands: The adrenal glands are normal. Kidneys and ureters: The kidneys are normal in size, shape and position. There are several tiny lucencies within the renal parenchyma. There are some defined cysts with the largest in the upper pole of the left kidney measuring 1.6 cm in diameter. No hydronephrosis or perinephric fluid collections. No hydroureter. Stomach and bowel: Unremarkable. No obstruction. No mucosal thickening. Appendix: A normal appendix is identified. Intraperitoneal space: Unremarkable. No free air. No significant fluid collection. Vasculature: Unremarkable. No abdominal aortic aneurysm. Lymph nodes: Unremarkable. No enlarged lymph nodes. Urinary bladder: Unremarkable as visualized. Reproductive: Unremarkable as visualized. Bones/joints: Unremarkable. No acute fracture. Soft tissues: Unremarkable. IMPRESSION: 1. No acute findings. 2. Simple liver and renal cysts. Dictated and Authenticated by: Indra Poon MD. Ordering:CHUCHO Hernandez MD
== END 2022-07-05 17:40 | disposition home or self-care (01) ==
PROVIDERS: Emergency Provider Emergency Medicine; PCP Nurse Practitioner Family
DX: R10.31 Right lower quadrant pain (principal); E11.9 Type 2 diabetes mellitus without complications; Z79.84 Long term (current) use of oral hypoglycemic drugs; Z79.82 Long term (current) use of aspirin
CPT/HCPCS: 80053; 83690; 96360; 99285; 74177; 81003; 83735; 85025; 99284; J3490

== ENCOUNTER 2023-03-01 04:10 | Outpatient (CLI) | payer BC, SELFPAY ==
[2023-03-01 13:01] LABS: Calculated LDL 88 mg/dL (<100); Cholesterol 186 mg/dL (<200); HDL Cholesterol 43 mg/dL (40-60); Triglyceride 277 mg/dL (<150)
[2023-03-01 13:29] LABS: COMMENT (LAB VIEW ONLY) 82.35 mg/dL; Microalb ug/mg Crea 18.1 ug/mg Cr
== END 2023-03-01 04:11 | disposition home or self-care (01) ==
LOC: LOS 04:11
PROVIDERS: PCP Nurse Practitioner Family; Visit Provider Nurse Practitioner Family
DX: E11.9 Type 2 diabetes mellitus without complications (principal)
CPT/HCPCS: 36415; 80061; 82043; 82570

== ENCOUNTER 2023-09-24 11:11 | Day surgery (SDC) | payer BC, SELFPAY ==
--- NOTE | 2023-09-23 20:26 | W.PM.DSUDISC ---
Date of service: 09/24/23 Time of Service: 13:25 Discharge Plan Disposition Patient Disposition: Home Condition: Good Discharge Details Reason For Visit: screening colonoscopy Attending Provider: Lorenzo Palmer Primary Care Provider: Alejandro Nice Home Meds and New Rx's Prescriptions: Continued Ozempic 0.25 mg or 0.5 mg (2 mg/3 mL) pen injector 0.25 mg subcut QWEEK Qty: 3 0RF Hold Instructions: Pt. states he has not started this yet will after scope Patient Comments: Pt has not started. Rx Instructions: for 4 weeks metformin 500 mg tablet extended release 24 hr 1,000 mg PO DAILY Qty: 180 3RF Rx Instructions: take 2 tablets once a day escitalopram oxalate [Lexapro] 20 mg tablet 20 mg PO DAILY Qty: 90 4RF pravastatin 20 mg tablet 20 mg PO DAILY Qty: 90 4RF Discontinued bisacodyl [Dulcolax (bisacodyl)] 5 mg tablet,delayed release (DR/EC) 5 mg PO ONCE Qty: 4 0RF Rx Instructions: Take per colonoscopy instructions provided by ordering providers office polyethylene glycol 3350 17 gram/dose powder 17 g PO ONCE Qty: 238 0RF Rx Instructions: Take per colonoscopy instructions provided by ordering providers office Discharge Instructions Instructions: Diverticulosis (GEN), Diverticulosis Diet (GEN) Additional Instructions: She had, removed to complete your colonoscopy today without any issues. Your prep was excellent. I did not see any signs of tumors or polyps. Incidentally, you do have just a little bit of diverticulosis. Diverticula are little weak spots in the muscular part of the colon wall. This causes the inside lining to approach outward slightly. Diverticula can get infected or inflamed. When that happens, patients typically have quite a bit of pain that usually on the left side or down across the lower portion of the rash. It is often times associated with fevers and feeling pretty crummy. Most of the time patients are treated with antibiotics. When that happens, we will call her diverticulitis. Attached a little bit of information here about typical approaches to diverticular disease. If you have any questions at all, please do not hesitate to ask at any point. Otherwise, you will need a follow-up colonoscopy in 10 years. 1. If tolerated, consume a soft, low fiber diet for 1-2 days. 2[address] Do not drive, drink alcohol, operate machinery, make critical decisions, or do activities that require coordination or balance for 24 hours. 3. Because air was put into your colon during the procedure, expelling air from your rectum (passing gas or farting) is normal. 4. You may not have a bowel movement for 1-3 days because of the colonoscopy prep. This is normal. 5. Go directly to the emergency room if you notice any of the following: Develop chills (warm to touch), or if you have a thermometer and your temperature is above 101 Difficulty breathing or difficultly swallowing Persistent vomiting Severe abdominal pain, other than gas cramps Severe chest pain Black, tarry stools Any bleeding ? exceeding one tablespoon 6. Call your physician if the site where your intravenous was started becomes red, swollen, painful, and warm to touch. 7. Your physician has reviewed your pre-procedure medications. Please continue to take those medications as previously ordered. You will be given specific information/education regarding any changes to your medications before leaving. Activity:: Activity as Tolerated Diet:: As Tolerated Discharge Orders Discharge Orders: Discharge Order (Routine); Ordered 09/23/23 Ordered By: Lorenzo Palmer DS: Diagnosis Discharge Diagnosis (1) Encounter for screening colonoscopy: Status: Acute Asessment and Plan: Is a screening colonoscopy; follow-up in 10 years
--- NOTE | 2023-09-23 20:27 | COLE_ITS ---
Date of service: 09/24/23 Time of Service: 13:26 Colonoscopy Report Date of procedure: 09/24/23 Pre-op diagnosis general: screening colonoscopy Post-op diagnosis procedure note: other (Diverticulosis) Procedure: colonoscopy Surgeon: Lorenzo Palmer Anesthesia Type: General:No Airway Estimated blood loss (mL): 0 Pathology: none sent Complications: None Disposition: same day Indications: Manav is a 48 year old man who needs his first screening colonoscopy Prep: Miralax/Dulcolax Procedure Start Time: 13:10 Procedure End Time: 13:21 Retraction Time: 8 Findings: Sigmoid diverticulosis Procedure Description: After the induction of monitored anesthetic care, and with the patient in left lateral decubitus position, I began by performing an external anorectal exam.? Perineum and skin were normal, as was the anal verge.? There was no evidence of external hemorrhoids.? Next, I performed a digital rectal exam.? I did not appreciate any abnormal findings.? Next, I advanced a colonoscope into the rectal vault.? I performed retroflexion.? This was normal.? Using insufflation, I then advanced the colonoscope beyond the rectal folds and into the sigmoid colon before advancing towards the cecum.? There was sigmoid diverticulosis.? The scope was noted to be in the cecum by identification of the ileocecal valve and appendiceal orifice.? I then began withdrawing the colonoscope using repeated irrigation as necessary for full evaluation of the colonic mucosa. ?Once the scope was withdrawn to the level of the rectum, great care was taken to examine portions of the rectal folds.? Finally, the scope was withdrawn and the patient was brought to the same-day surgery recovery unit as the anesthetic wore off. ?The findings and instructions were shared with the patient prior to discharge. Lyford Bowel Prep Lyford Bowel Prep Right Colon: 3 Left Colon: 3 Transverse Colon: 3 Total Score: 9
[2023-09-24 11:27] VITALS: BP 115/83; PULSE 63; RESP 16; TEMP 36.3; O2SAT 98
[2023-09-24] MEDS: Lactated Ringers 1,000 ML 80 ML IV (11:30)
--- NOTE | 2023-09-24 12:55 | W.ANESPRE ---
General Info Date of Service Date Performed: 09/24/23 Height: 5 ft 11 in Weight: 109.316 kg Body Mass Index (BMI): 33.6 Surgical Procedure: Operation Date: 09/24/23 13:20 Proposed Procedure Side Surgeon p Herson Palmer MD Meds Allergies and Home Medications Allergies Allergy/AdvReac Type Severity Reaction Status Date / Time No Known Allergies Allergy Verified 09/24/23 11:24 Home Medication Medication Instructions Recorded metformin 500 mg tablet,extended 1,000 mg (2 x 500 mg) PO DAILY 09/28/22 release 24 hr #180 tabs escitalopram oxalate 20 mg tablet 20 mg PO DAILY #90 tabs 11/23/22 (Lexapro) pravastatin 20 mg tablet 20 mg PO DAILY #90 tabs 11/23/22 semaglutide 0.25 mg or 0.5 mg (2 0.25 mg (0.368 mL) subcut QWEEK #3 09/08/23 mg/3 mL) subcutaneous pen injector mL (Ozempic) Current Visit Medications: Current Medications Generic Name Dose Route Start Last Admin Trade Name Tamq PRN Reason Stop Dose Admin Hyoscyamine Sulfate 0.125 mg 09/23/23 20:29 Hyoscyamine 0.125 Mg Sl/Oral/Chew SL 10/23/23 20:28 DIRECTED PRN Ringer's Solution 1,000 mls @ 80 mls/hr 09/24/23 06:00 09/24/23 11:30 IV 09/24/23 23:59 80 mls/hr INFUSION CRISTAL Administration IV Miscellaneous Supplies 1 each 09/24/23 06:00 Iv Access IV 09/24/23 23:59 DIRECTED CRISTAL Sodium Chloride 0 ml 09/24/23 06:00 Normal Saline Flush 10 Ml Syr IV 09/24/23 23:59 PRN PRN Sodium Chloride 0 ml 09/24/23 06:00 Normal Saline 10 Ml Vial IJ 09/24/23 23:59 DIRECTED PRN Sterile Water 0 ml 09/24/23 06:00 Water,Injection,Sterile 10 Ml Vial IJ 09/24/23 23:59 DIRECTED PRN PFSH Active Problems Active Problems: Problem Status Onset Code Encounter for screening colonoscopy Z12.11 Elevated liver enzymes R74.8 Type 2 diabetes mellitus without complication, without long-term current use of insulin 11/26/17 E11.9 Liver cyst 11/23/17 K76.89 Kidney cysts 11/23/17 N28.1 Depression F32.9 Medical History Medical History Kidney stone (11/23/17) Adverse exposure in workplace (11/23/17) Surgical History Surgical History Vasectomy Tobacco Smoking/Tobacco Use Status: Never Passive smoking exposure: No Second hand exposure: No Alcohol Alcohol Intake: current Alcohol intake frequency: a few times a week Alcohol type: beer and hard liquor Substance Use Substance use: Never Substance use type: does not use Vital Signs and Lab Results Vital Signs Most Recent Vital Signs in EMR: Most Recent Vital Signs Temp Pulse Resp BP Pulse Ox 36.3 C L 63 16 115/83 98 09/24/23 11:27 09/24/23 11:27 09/24/23 11:27 09/24/23 11:27 09/24/23 11:27 Point of Care Results Point of Care Results: Finger Stick Blood Glucose 158 09/24/23 11:24 Lab Results Blood Type / Crossmatch: No Data to Display Complete Blood Count: No Data to Display Complete Metabolic Panel: Hemoglobin A1c 8.2 % (4.5-5.7) H 09/08/23 15:42 Liver Function Panel: No Data to Display Coagulation Panel: No Data to Display Cardiac Panel: No Data to Display Arterial Blood Gas: No Data to Display Venous Blood Gas: No Data to Display Pancreas Panel: No Data to Display Thyroid Panel: No Data to Display Infectious Disease: No Data to Display Blood Cultures: No Data to Display Toxicology Panel: No Data to Display Anesthesia Assessment and Plan Anesthesia History Personal History: No History of Anesthesia Complications Family History: No Family History of Anesthesia Complications Exercise Tolerance Exercise Tolerance: Metabolic Equivalents>4 Pertinent Negatives Pertinent Negatives: No Symptoms of GERD Cardiac & Pulmonary Exam Cardiac Exam: Normal S1/S2 Heart Sounds Pulmonary Exam: Clear Bilateral Breath Sounds Implantable Cardiac Device Does patient have a Pacemaker or an ICD?: No Airway Exam Known Difficult Airway: No Mallampati Class: 2 Mouth Opening: Normal (> 3cm) Thyromental Distance: Greater than 3 cm Neck Range of Motion: Full ROM Neck Circumference: Thick Teeth Condition: Normal Dentition ASA Classification ASA Score: ASA 2 Emergency Case?: No NPO Status NPO Status: NPO Clears >2 hours, Solids >8 hours Anesthesia Plan Resuscitation Status: Full Code Anesthesia Technique: General Anesthesia Airway Planned: Natural Airway Monitors Used: Standard Monitors
[2023-09-24 12:56] VITALS: BMI 33.6
[2023-09-24 13:25] VITALS: BP 108/67; PULSE 57; RESP 16; TEMP 36.5; O2SAT 97
[2023-09-24 13:55] VITALS: BP 108/60; PULSE 57; RESP 16; TEMP 36.5; O2SAT 97
--- NOTE | 2023-09-24 14:49 | W.ANESPOSTOP ---
Postoperative Evaluation Date, Time and Location Date Performed: 09/24/23 Time Performed: 14:49 Patient Location: Day Surgery Unit Vital Signs Most Recent Imported Vital Signs: Most Recent Vital Signs Temp Pulse Resp BP Pulse Ox 36.5 C 57 L 16 108/60 97 09/24/23 13:55 09/24/23 13:55 09/24/23 13:55 09/24/23 13:55 09/24/23 13:55 Pain Score Most Recent Pain Score: Most Recent Pain Score Pain Level 0 09/24/23 13:55 Assessment Mental Status: Awake (Alert & Oriented to Patient Baseline) Airway and Respiratory Function: Patent airway with normal (patient baseline) respiratory exam Cardiovascular Function: Hemodynamically Stable Hydration Status: Adequately Hydrated Nausea & Vomiting: No Nausea or Vomiting Pain: Pt. Denies Any Pain Peripheral Nerve Block: Patient did not receive a nerve block
== END 2023-09-24 14:15 | disposition home or self-care (01) ==
LOC: SUR 11:11
PROVIDERS: PCP Nurse Practitioner Family; Visit Provider Surgery
PROC: 0DJD8ZZ Inspection of Lower Intestinal Tract, Via Natural or Artificial Opening Endoscopic (ICD-10-PCS; CPT 45378; principal; 2023-09-24 13:15)
DX: Z12.11 Encounter for screening for malignant neoplasm of colon (principal); K57.30 Diverticulosis of large intestine without perforation or abscess without bleeding; E11.9 Type 2 diabetes mellitus without complications
CPT/HCPCS: 45378; J2001; J2704

== ENCOUNTER 2024-11-22 02:24 | Outpatient (CLI) | payer BC, SELFPAY ==
[2024-11-22 13:05] LABS: ALT 61 U/L (16-63); AST 42 U/L (15-37); Albumin 4.1 g/dL (3.4-5.0); Alkaline Phosphatase 69 U/L (46-116); Anion Gap 7.7 mmol/L (3-11); BUN 14 mg/dL (7-18); Bilirubin, Total 0.9 mg/dL (0.2-1.0); CO2 27.3 mmol/L (21.0-32.0); Calcium 9.0 mg/dL (8.5-10.1); Calculated LDL 99 mg/dL (<100); Chloride 102 mmol/L (98-107); Cholesterol 202 mg/dL (<200); Estimated GFR 104.70 (mL/min/1.73m2); Glucose 223 mg/dL (74-106); HDL Cholesterol 38 mg/dL (>or=40); Potassium 4.3 mmol/L (3.5-5.1); Sodium 137 mmol/L (136-145); Total Protein 7.8 g/dL (6.4-8.2); Triglyceride 325 mg/dL (<150)
== END 2024-11-22 02:25 | disposition home or self-care (01) ==
LOC: LOS 02:24
PROVIDERS: PCP Nurse Practitioner Family; Visit Provider Nurse Practitioner Family
DX: Z13.220 Encounter for screening for lipoid disorders (principal); E11.9 Type 2 diabetes mellitus without complications
CPT/HCPCS: 36415; 80053; 80061

== ENCOUNTER 2025-01-31 10:15 | Outpatient (CLI) | payer BC, SELFPAY ==
[2025-01-31 14:19] LABS: Uric Acid 6.8 mg/dL (3.5-7.2)
== END 2025-01-31 10:16 | disposition home or self-care (01) ==
PROVIDERS: PCP Nurse Practitioner Family; Visit Provider Nurse Practitioner Family
DX: M10.9 Gout, unspecified (principal)
CPT/HCPCS: 36415; 84550